=== PATIENT | female | born 1995 ===

== ENCOUNTER 2018-06-26 10:57 | Emergency (ER) | payer OTHER ==
[2018-06-26 11:05] VITALS: O2SAT 99
[2018-06-26 11:08] VITALS: BMI 23.6
--- NOTE | 2018-06-26 12:08 | C.PDOC ---
History Of Present Illness 22 year old female presents to the ED status post fall. She complains of left thigh pain that radiates to the knee and all throughout the leg. She notices that the pain gets worse with weight bearing. She denies any nausea, vomiting, diarrhea, extremity weakness or numbness. The patient did not take any pain medication prior to arrival. Time Seen by Provider: 06/26/18 11:54 Chief Complaint (Nursing): Lower Extremity Problem/Injury History Per: Patient History/Exam Limitations: no limitations Onset/Duration Of Symptoms: Hrs Current Symptoms Are (Timing): Still Present - Knee Description Of Injury: Fell Past Medical History Reviewed: Historical Data, Nursing Documentation, Vital Signs Vital Signs: Last Vital Signs Temp 98.3 F 06/26/18 10:59 Pulse 104 H 06/26/18 10:59 Resp 16 06/26/18 10:59 BP 104/66 06/26/18 10:59 Pulse Ox 99 06/26/18 10:59 Family History: States: No Known Family Hx - Social History Hx Alcohol Use: No Hx Substance Use: No - Immunization History Hx Tetanus Toxoid Vaccination: No Hx Influenza Vaccination: Yes (2017) Hx Pneumococcal Vaccination: Yes (2016) Review Of Systems Except As Marked, All Systems Reviewed And Found Negative. Constitutional: Negative for: Fever Gastrointestinal: Negative for: Nausea, Vomiting, Diarrhea Musculoskeletal: Positive for: Leg Pain Neurological: Negative for: Weakness, Numbness Physical Exam - Physical Exam Appears: Well, Non-toxic, No Acute Distress Skin: Normal Color, Warm Head: Atraumatic, Normacephalic Eye(s): bilateral: Normal Inspection Oral Mucosa: Moist Neck: Normal ROM Chest: Symmetrical Extremity: Normal ROM, Tenderness (mild tenderness to the distal left thigh and anterior knee), No Calf Tenderness, No Deformity, No Swelling (no erythema) Extremity: Left: Painful To Bear Weight Pulses: Left Dorsalis Pedis: Normal, Right Dorsalis Pedis: Normal Neurological/Psych: Oriented x3, Normal Speech, Normal Motor, Normal Sensation Gait: Steady ED Course And Treatment O2 Sat by Pulse Oximetry: 99 (RA) Pulse Ox Interpretation: Normal Medical Decision Making Medical Decision Making: Impression: 22 year old female with left leg pain s.p trip and fall Plan: Discussed the plan of an X-ray with the patient. She says she does not want an X-ray because she knows nothing is broken. Offer analgesic but declined. Patient wants crutches to walk. Knee brace applied by CP and instructed on crutch walking. Recommend rest ice elevation and analgesics. Stable for discharge home. Disposition Counseled Patient/Family Regarding: Diagnosis, Need For Followup, Rx Given - Disposition Referrals: Josie Ontiveros MD [Staff Provider] - Disposition: HOME/ ROUTINE Disposition Time: 12:30 Condition: GOOD Additional Instructions: Please apply ice to area 15 minutes three times a day. Take Motrin as needed for pain every 6 hours, with food to not upset stomach. Follow up with orthopedic if pain persists over one week. Por favor aplique hielo al santos 15 minutos tracy veces al da. [place] Motrin segn sea necesario para el dolor cada 6 horas, con alimentos que no molesten el estmago. Salazar un seguimiento con ortopedia si el dolor persiste tami chinedu semana. Prescriptions: Ibuprofen [Motrin] 600 mg PO Q8 #30 tab Instructions: Knee Sprain (DC) Forms: [employer] ([place]er) Print Language: CUBAN - POA Present On Arrival: Falls Or Trauma - Clinical Impression Clinical Impression: Contusion of leg, left - PA / PACKAGER / Resident Statement MD/DO has reviewed & agrees with the documentation as recorded. - Scribe Statement The provider has reviewed the documentation as recorded by the Scribe (Nano Dahl) All medical record entries made by the Scribe were at my direction and pers onally dictated by me. I have reviewed the chart and agree that the record accurately reflects my personal performance of the history, physical exam, medical decision making, and the department course for this patient. I have also personally directed, reviewed, and agree with the discharge instructions and disposition.
[2018-06-26 12:22] VITALS: BP 111/69; PULSE 100; RESP 18; TEMP 98.5
== END 2018-06-26 12:40 | disposition home or self-care (01) ==
LOC: C.ER 10:57
DX: S80.12XA Contusion of left lower leg, initial encounter (principal); W01.0XXA Fall on same level from slipping, tripping and stumbling without subsequent striking against object, initial encounter; Y92.480 Sidewalk as the place of occurrence of the external cause